=== PATIENT | male | born 1985 | race Caucasian/White ===

== ENCOUNTER → 2019-05-21 | Outpatient (CLI) | payer BC ==
[~2019-05-21] MED LIST: ALBU90OI INH; AZIT250 PO; Bactrim Ds Tab1 EACH PO; CEPH500 PO; CODACE30 PO; HYDACE10B PO; HYDACE5 PO; HYDPAM25 PO; KETO10 PO; META800 PO; MUPI2TO TOP; NAPR500 PO; OXYACE5T PO; PENVK500 PO; PRED10 PO; PRED20 PO; RXCLIN PO; RXCODACET PO; Robaxin-750750 MG PO; TRAM50 PO; Ultram50 MG PO
[2019-05-21 16:41] LABS: BASOPHILS ABSOLUTE AUTO 0.13 K/mm3 (0.00-0.23); BASOPHILS PERCENT AUTO 1 % (0-2); EOSINOPHILS ABSOLUTE AUTO 0.19 K/mm3 (0.00-0.68); EOSINOPHILS PERCENT AUTO 2 % (0-6); Hematocrit 48.2 % (37.0-53.0); Hemoglobin 17.3 g/dL (13.5-17.5); IMMATURE GRAN ABSOLUTE AUTO 0.03 K/mm3 (0.00-0.10); IMMATURE GRAN PERCENT AUTO 0 % (0-1); LYMPHOCYTES ABSOLUTE AUTO 1.15 K/mm3 (0.84-5.20); LYMPHOCYTES PERCENT AUTO 9 % (21-46); MONOCYTES ABSOLUTE AUTO 0.52 K/mm3 (0.16-1.47); MONOCYTES PERCENT AUTO 4 % (4-13); Mean Corpuscular HGB 31.3 pg (26.0-34.0); Mean Corpuscular HGB Conc 35.9 g/dL (31.5-36.5); Mean Corpuscular Volume 87 fL (80-100); Mean Platelet Volume 9.9 fL (9.1-12.4); NEUTROPHILS ABSOLUTE AUTO 10.26 K/mm3 (1.96-9.15); NEUTROPHILS PERCENT AUTO 84 % (41-73); Platelet Count 235 K/mm3 (150-400); RDW Coefficient Variation 12.2 % (11.7-14.2); Red Blood Cell Count 5.52 M/mm3 (4.30-5.90); White Blood Cell Count 12.28 K/mm3 (4.00-11.30)
[2019-05-21 17:01] LABS: Alanine Aminotransfer (ALT/SGP 48 U/L (12-78); Albumin, Blood 4.3 g/dL (3.4-5.0); Albumin/Globulin Ratio 1.3 (0.8-1.8); Alk Phos 58 U/L (40-126); Anion Gap 7 mmol/L (6-16); Aspartate Aminotrans (AST/SGOT 24 U/L (12-37); Bilirubin, Total 0.7 mg/dL (0.1-1.0); Blood Urea Nitrogen 18 mg/dL (8-24); CO2, Blood 30 mmol/L (21-32); Calcium, Blood 9.8 mg/dL (8.5-10.1); Chloride, Blood 104 mmol/L (98-108); Creatinine, Blood 1.29 mg/dL (0.60-1.20); Globulin, Blood 3.2 g/dL (2.2-4.0); Glomerular Filtration Rate >60 (60-); Glucose, Blood 87 mg/dL (70-99); Potassium, Blood 3.8 mmol/L (3.5-5.5); Sodium, Blood 141 mmol/L (136-145); Total Protein, Blood 7.5 g/dL (6.4-8.2)
== END ==
LOC: LAB EV 16:37 → LAB SHORT 16:37
PROVIDERS: Physician Assistant Medical
DX: R55 Syncope and collapse (principal)
CPT/HCPCS: 80053; 84443; 85025

== ENCOUNTER 2019-07-29 14:55 | Emergency (ER) | payer BC ==
[~2019-07-29] VITALS: Ht 172.7 cm; Wt 79.4 kg
[~2019-07-29 14:55] MED LIST changes: -KETO10 PO; -Robaxin-750750 MG PO; -Ultram50 MG PO
[2019-07-29] MEDS ORDERED: Robaxin-750750 MG PO (15:54)
[2019-07-29] MEDS ORDERED: Ultram50 MG PO (15:54)
[2019-07-29] MEDS ORDERED: KETO10 PO (15:54)
== END 2019-07-29 16:25 | disposition home or self-care (01) ==
LOC: ER 14:55
DX: M54.5 Low back pain (principal); F17.210 Nicotine dependence, cigarettes, uncomplicated
CPT/HCPCS: 96372; 99283-25; A9270-GY; J1885

== ENCOUNTER 2020-08-02 10:59 | Emergency (ER) | payer BC ==
[~2020-08-02] VITALS: Ht 170.2 cm; Wt 72.6 kg
[~2020-08-02 10:59] MED LIST changes: +KETO10 PO; +Robaxin-750750 MG PO; +Ultram50 MG PO
[2020-08-02] MEDS ORDERED: Amoxicillin500 MG PO (11:27)
[2020-08-02] MEDS ORDERED: IBU800 MG PO (11:27)
== END 2020-08-02 11:37 | disposition home or self-care (01) ==
LOC: ER 10:59
DX: K02.9 Dental caries, unspecified (principal); F17.210 Nicotine dependence, cigarettes, uncomplicated; Z79.899 Other long term (current) drug therapy
CPT/HCPCS: 99282

== ENCOUNTER 2021-07-15 15:48 | Emergency (ER) | payer BC ==
[~2021-07-15] VITALS: Ht 175.3 cm; Wt 80.7 kg
[~2021-07-15 15:48] MED LIST changes: +Amoxicillin500 MG PO; +IBU800 MG PO
[2021-07-15] MEDS ORDERED: IBUP400 PO (16:43)
== END 2021-07-15 16:58 | disposition home or self-care (01) ==
LOC: ER 15:48
DX: S93.492A Sprain of other ligament of left ankle, initial encounter (principal); S83.92XA Sprain of unspecified site of left knee, initial encounter; S90.32XA Contusion of left foot, initial encounter; J45.909 Unspecified asthma, uncomplicated; W10.9XXA Fall (on) (from) unspecified stairs and steps, initial encounter; Y92.009 Unspecified place in unspecified non-institutional (private) residence as the place of occurrence of the external cause; Z79.899 Other long term (current) drug therapy
CPT/HCPCS: 73562-LT; 73610; 99283-25

== ENCOUNTER → 2021-11-12 | Outpatient (CLI) | payer BC ==
[~2021-11-12] MED LIST changes: +IBUP400 PO
[2021-11-12 10:19] LABS: Alanine Aminotransfer (ALT/SGP 36 U/L (12-78); Albumin/Globulin Ratio 1.3 (0.8-1.8); Alk Phos 57 U/L (50-136); Anion Gap 8 mmol/L (6-16); Aspartate Aminotrans (AST/SGOT 19 U/L (12-37); Bilirubin, Total 0.5 mg/dL (0.1-1.0); Blood Urea Nitrogen 18 mg/dL (8-24); Bun/Creatinine Ratio 18.6 (12.0-20.0); CO2, Blood 25 mmol/L (21-32); Calcium, Blood 9.7 mg/dL (8.5-10.1); Chloride, Blood 110 mmol/L (98-108); Creatinine, Blood 0.97 mg/dL (0.60-1.20); Glomerular Filtration Rate >60 (60-); Glucose, Blood 90 mg/dL (70-99); Potassium, Blood 4.5 mmol/L (3.5-5.5); Sodium, Blood 143 mmol/L (136-145)
== END | disposition home or self-care (01) ==
LOC: LAB SHORT 09:27
PROVIDERS: Physician Assistant
DX: R10.11 Right upper quadrant pain (principal)
CPT/HCPCS: 80053; 83690

== ENCOUNTER 2022-02-03 05:12 | Emergency (ER) | payer SELFPAY ==
[~2022-02-03] VITALS: Ht 175.3 cm; Wt 74.8 kg
[2022-02-03 05:54] LABS: BASOPHILS PERCENT AUTO 1 % (0-2); EOSINOPHILS ABSOLUTE AUTO 0.19 K/mm3 (0.00-0.68); EOSINOPHILS PERCENT AUTO 2 % (0-6); Hemoglobin 15.3 g/dL (13.5-17.5); IMMATURE GRAN ABSOLUTE AUTO 0.01 K/mm3 (0.00-0.10); IMMATURE GRAN PERCENT AUTO 0 % (0-1); LYMPHOCYTES ABSOLUTE AUTO 1.12 K/mm3 (0.84-5.20); LYMPHOCYTES PERCENT AUTO 14 % (21-46); MONOCYTES ABSOLUTE AUTO 0.48 K/mm3 (0.16-1.47); MONOCYTES PERCENT AUTO 6 % (4-13); Mean Corpuscular HGB Conc 34.8 g/dL (31.5-36.5); Mean Corpuscular Volume 89 fL (80-100); Mean Platelet Volume 9.4 fL (9.1-12.4); NEUTROPHILS ABSOLUTE AUTO 6.35 K/mm3 (1.96-9.15); NEUTROPHILS PERCENT AUTO 77 % (41-73); Platelet Count 239 K/mm3 (150-400); RDW Coefficient Variation 11.9 % (11.7-14.2); RDW Standard Deviation 38.8 fL (35.1-46.3); Red Blood Cell Count 4.94 M/mm3 (4.30-5.90); White Blood Cell Count 8.25 K/mm3 (4.00-11.30)
[2022-02-03 06:05] LABS: Alanine Aminotransfer (ALT/SGP 57 U/L (12-78); Albumin, Blood 4.3 g/dL (3.4-5.0); Albumin/Globulin Ratio 1.5 (0.8-1.8); Alk Phos 45 U/L (50-136); Anion Gap 8 mmol/L (6-16); Aspartate Aminotrans (AST/SGOT 26 U/L (12-37); Bilirubin, Total 0.8 mg/dL (0.1-1.0); Blood Urea Nitrogen 27 mg/dL (8-24); Bun/Creatinine Ratio 27.2 (12.0-20.0); CO2, Blood 24 mmol/L (21-32); Calcium, Blood 8.9 mg/dL (8.5-10.1); Chloride, Blood 109 mmol/L (98-108); Creatinine, Blood 0.99 mg/dL (0.60-1.20); Globulin, Blood 2.8 g/dL (2.2-4.0); Glomerular Filtration Rate >60 (60-); Glucose, Blood 85 mg/dL (70-99); Potassium, Blood 3.9 mmol/L (3.5-5.5); Sodium, Blood 141 mmol/L (136-145); Total Protein, Blood 7.1 g/dL (6.4-8.2)
== END 2022-02-03 08:32 | disposition home or self-care (01) ==
LOC: ER 05:12
PROVIDERS: Student in an Organized Health Care Education/Training Program
DX: R00.1 Bradycardia, unspecified (principal); S01.81XA Laceration without foreign body of other part of head, initial encounter; W19.XXXA Unspecified fall, initial encounter
CPT/HCPCS: 12011; 36415; 70450; 71046; 72125; 80053; 84484; 85025; 90471; 90714; 93005; 93010; 93242; 99284-25; J7030; L0160

== ENCOUNTER 2024-09-06 08:37 | Emergency (ER) | payer OTHER ==
[~2024-09-06] VITALS: Ht 175.3 cm; Wt 68.0 kg
[~2024-09-06 08:37] MED LIST changes: +IBUP400; +MELO7.5; +NEURONTIN300 MG; +SLEEP AID
[2024-09-06 10:23] LABS: BASOPHILS ABSOLUTE AUTO 0.14 K/mm3 (0.00-0.23); BASOPHILS PERCENT AUTO 2 % (0-2); EOSINOPHILS ABSOLUTE AUTO 0.55 K/mm3 (0.00-0.68); EOSINOPHILS PERCENT AUTO 9 % (0-6); Hematocrit 44.5 % (37.0-53.0); Hemoglobin 16.2 g/dL (13.5-17.5); IMMATURE GRAN ABSOLUTE AUTO 0.01 K/mm3 (0.00-0.10); IMMATURE GRAN PERCENT AUTO 0 % (0-1); LYMPHOCYTES ABSOLUTE AUTO 1.69 K/mm3 (0.84-5.20); LYMPHOCYTES PERCENT AUTO 28 % (21-46); MONOCYTES ABSOLUTE AUTO 0.34 K/mm3 (0.16-1.47); MONOCYTES PERCENT AUTO 6 % (4-13); Mean Corpuscular HGB 32.7 pg (26.0-34.0); Mean Corpuscular HGB Conc 36.4 g/dL (31.5-36.5); Mean Corpuscular Volume 90 fL (80-100); Mean Platelet Volume 9.5 fL (9.1-12.4); NEUTROPHILS ABSOLUTE AUTO 3.33 K/mm3 (1.96-9.15); NEUTROPHILS PERCENT AUTO 55 % (41-73); Platelet Count 243 K/mm3 (150-400); RDW Coefficient Variation 12.1 % (11.7-14.2); RDW Standard Deviation 39.7 fL (35.1-46.3); Red Blood Cell Count 4.96 M/mm3 (4.30-5.90); White Blood Cell Count 6.06 K/mm3 (4.00-11.30)
[2024-09-06 10:49] LABS: Albumin, Blood 4.1 g/dL (3.4-5.0); Albumin/Globulin Ratio 1.2 (0.8-1.8); Bilirubin, Total 0.6 mg/dL (0.1-1.0); Bun/Creatinine Ratio 20.3 (12.0-20.0); Calcium, Blood 9.6 mg/dL (8.5-10.1); Creatinine, Blood 0.94 mg/dL (0.60-1.20); Globulin, Blood 3.3 g/dL (2.2-4.0); Potassium, Blood 4.4 mmol/L (3.5-5.5); Total Protein, Blood 7.4 g/dL (6.4-8.2)
[2024-09-06] MEDS ORDERED: CATAPRES0.1 MG (10:56)
[2024-09-06] MEDS ORDERED: SERT25 (10:56)
[2024-09-06 11:00] VITALS: BP 134/83
== END 2024-09-06 11:25 | disposition home or self-care (01) ==
LOC: ER 08:37
PROVIDERS: Physician Assistant
DX: K62.5 Hemorrhage of anus and rectum (principal); J45.909 Unspecified asthma, uncomplicated; F17.210 Nicotine dependence, cigarettes, uncomplicated; Z79.899 Other long term (current) drug therapy
CPT/HCPCS: 80053; 85025; 99283

== ENCOUNTER 2024-11-26 09:41 | Day surgery (SDC) | payer OTHER ==
[~2024-11-26] VITALS: Ht 175.3 cm; Wt 63.0 kg
[~2024-11-26 09:41] MED LIST changes: +CATAPRES0.1 MG; +Lactated Ringer's 1,000 ML IV ONE; +SERT25; +propofoL 50 ML IV ONE
--- NOTE | 2024-11-26 10:15 | NUR ---
11/26/24 Raquel Jeronimo PREOP CHARTING [email or web address]
[2024-11-26] MEDS ORDERED: Lactated Ringer's 1,000 ML IV ONE (10:33)
[2024-11-26 12:02] VITALS: BP 108/77
== END 2024-11-26 12:00 | disposition home or self-care (01) ==
LOC: ORSCSDS 09:41
PROVIDERS: Surgery
PROC: 0DJD8ZZ Inspection of Lower Intestinal Tract, Via Natural or Artificial Opening Endoscopic (ICD-10-PCS; principal; 2024-11-26 11:00)
DX: K92.1 Melena (principal); K64.1 Second degree hemorrhoids; J45.909 Unspecified asthma, uncomplicated; Z79.899 Other long term (current) drug therapy; Z87.891 Personal history of nicotine dependence
CPT/HCPCS: J2704; J7120

== ENCOUNTER 2025-07-13 21:39 | Emergency (ER) | payer OTHER ==
[~2025-07-13] VITALS: Ht 175.3 cm; Wt 70.3 kg
[~2025-07-13 21:39] MED LIST changes: -Lactated Ringer's 1,000 ML IV ONE; -propofoL 50 ML IV ONE
[2025-07-13] MEDS ORDERED: CEPH500 PO (21:50)
[2025-07-13 21:51] VITALS: BP 137/92
== END 2025-07-13 21:52 | disposition home or self-care (01) ==
LOC: ER 21:39
DX: L03.116 Cellulitis of left lower limb (principal); J45.909 Unspecified asthma, uncomplicated; Z79.899 Other long term (current) drug therapy
CPT/HCPCS: 99282; A9270

== ENCOUNTER → 2025-07-24 | Outpatient (CLI) | payer OTHER | END | disposition home or self-care (01) | LOC: LAB SHORT 15:05 → LAB 15:05 | DX: L02.416 Cutaneous abscess of left lower limb (principal) | CPT/HCPCS: 87070; 87075; 87077; 87147; 87186; 87205 ==